=== PATIENT | female | born 1990 | race African-American/Black ===

== ENCOUNTER 2023-07-30 13:54 | Emergency (ER) | payer MEDICARE, OTHER ==
[~2023-07-30] VITALS: Ht 175.3 cm; Wt 103.0 kg
[2023-07-30] MEDS ORDERED: IBUP-1955 PO (15:20)
[2023-07-30 15:33] VITALS: BP 141/66; TEMP 98.2; O2SAT 100
== END 2023-07-30 15:33 | disposition home or self-care (01) ==
LOC: ER 14:00
DX: S46.912A Strain of unspecified muscle, fascia and tendon at shoulder and upper arm level, left arm, initial encounter (principal); V03.90XA Pedestrian on foot injured in collision with car, pick-up truck or van, unspecified whether traffic or nontraffic accident, initial encounter; Y93.89 Activity, other specified; Y92.89 Other specified places as the place of occurrence of the external cause; Y99.8 Other external cause status
CPT/HCPCS: 99284; 73030; 73110; J7040

== ENCOUNTER 2024-01-08 11:11 | Emergency (ER) | payer MEDICARE, OTHER ==
[~2024-01-08] VITALS: Ht 175.3 cm; Wt 106.1 kg
[~2024-01-08 11:11] MED LIST: IBUP-1955 PO
[2024-01-08] MEDS ORDERED: NITR100C6 PO (11:52)
[2024-01-08] MEDS ORDERED: FLUC150T PO (11:52)
[2024-01-08] MEDS ORDERED: NITROFURANTOIN/MONOHYDRATE MACROCRYSTALS 100 MG CAPSULE ONE (11:54)
[2024-01-08] MEDS: NITROFURANTOIN/MONOHYDRATE MACROCRYSTALS 100 MG CAPSULE PO ONE (11:55)
[2024-01-08 12:43] VITALS: BP 124/77; TEMP 98.3; O2SAT 98
== END 2024-01-08 12:45 | disposition home or self-care (01) ==
LOC: ER 11:11
DX: N39.0 Urinary tract infection, site not specified (principal)

== ENCOUNTER 2024-01-27 03:06 | Emergency (ER) | payer MEDICARE, OTHER ==
[~2024-01-27] VITALS: Ht 177.8 cm; Wt 90.7 kg
[~2024-01-27 03:06] MED LIST changes: +FLUC150T PO; +NITR100C6 PO
[2024-01-27 04:06] VITALS: TEMP 98.5
[2024-01-27 05:28] LABS: BASOPHILS % (AUTO) 0.6 % (0.0-2.0); EOSINOPHILS % (AUTO) 0.3 % (0.0-6.0); HEMATOCRIT 33 % (33-45); HEMOGLOBIN 10.7 g/dL (11.5-14.8); LYMPHOCYTES # (AUTO) 2.3 K/uL (0.8-4.8); LYMPHOCYTES % (AUTO) 29.4 % (20.0-44.0); MEAN CORPUSCULAR HEMOGLOBIN 27 PG (26.0-33.0); MEAN CORPUSCULAR HGB CONC 33 g/dl (31.0-36.0); MEAN CORPUSCULAR VOLUME 83 fL (82-100); MONOCYTES # (AUTO) 1.1 K/uL (0.1-1.30); MONOCYTES % (AUTO) 14.6 % (2.0-12.0); NEUTROPHILS # (AUTO) 4.3 K/uL (1.8-8.9); NEUTROPHILS % (AUTO) 55.1 % (43.0-81.0); PLATELET COUNT (AUTO) 362 K/uL (150-450); RED BLOOD CELL COUNT(AUTO) 3.98 MIL/uL (4.0-5.2); RED CELL DISTRIBUTION WIDTH 17.5 % (11.5-15.0); WHITE BLOOD COUNT (AUTO) 7.8 K/uL (4.3-11.0)
[2024-01-27 05:50] LABS: CALCIUM, SERUM 8.8 mg/dL (8.5-10.1); CREATININE 0.9 mg/dL (0.6-1.3); POTASSIUM 3.6 mmol/L (3.5-5.1)
[2024-01-27] MEDS ORDERED: CLIN150C16 PO (05:52)
[2024-01-27] MEDS ORDERED: CLINDAMYCIN HCL 150 MG CAPSULE ONE (05:58)
[2024-01-27] MEDS: CLINDAMYCIN HCL 150 MG CAPSULE PO ONE (06:01)
[2024-01-27 06:04] LABS: ALBUMIN 3.2 g/dL (3.4-5.0); BILIRUBIN,TOTAL 0.3 mg/dL (0.2-1.0); TOTAL PROTEIN, SERUM 7.7 g/dL (6.4-8.2)
[2024-01-27 06:56] VITALS: BP 124/81; O2SAT 96
== END 2024-01-27 06:56 | disposition home or self-care (01) ==
LOC: ER 03:20
DX: N61.0 Mastitis without abscess (principal)
CPT/HCPCS: 36415; 76642-LT-TC; 80053-TC; 85025-TC

== ENCOUNTER 2024-02-26 10:33 | Emergency (ER) | payer MEDICARE, OTHER ==
[~2024-02-26] VITALS: Ht 175.3 cm; Wt 105.2 kg
[~2024-02-26 10:33] MED LIST changes: +CLIN150C16 PO
[2024-02-26 10:50] VITALS: BP 141/74; TEMP 98.4; O2SAT 100
== END 2024-02-26 11:57 | disposition home or self-care (01) ==
LOC: ER 10:35
DX: M79.661 Pain in right lower leg (principal)
CPT/HCPCS: 93971-TC

== ENCOUNTER 2024-09-05 09:09 | Emergency (ER) | payer MEDICARE, OTHER ==
[~2024-09-05] VITALS: Ht 175.3 cm; Wt 113.9 kg
[2024-09-05 09:52] LABS: APPEARANCE,URINE SLIGHTLY CLOUDY (CLEAR); BILIRUBIN,URINE NEGATIVE (NEGATIVE); BLOOD, URINE 3+ Ery/uL (NEGATIVE); COLOR,URINE YELLOW (YELLOW); KETONES,URINE NEGATIVE (NEGATIVE); LEUKOCYTE ESTERASE ,URINE 1+ (NEGATIVE); NITRITE, URINE NEGATIVE (NEGATIVE); PH,URINE 7.5 (5.0-8.0); PROTEIN,URINE 1+ mg/dl (NEGATIVE); UGLUCOSE NEGATIVE (NEGATIVE)
[2024-09-05 09:53] LABS: PREGNANCY TEST URINE QUAL NEGATIVE (NEGATIVE)
[2024-09-05 09:57] LABS: ADD URINE CULTURE YES; BACTERIA,URINE Few /HPF (None Seen); RBC,URINE 51-80 /HPF (0-2); SQUAMOUS EPITHELIAL CELL,UR Few /HPF (None Seen); WBC,URINE 51-80 /HPF (0-3)
[2024-09-05] MEDS ORDERED: NITR-84 PO ×2 (10:00→17:34)
[2024-09-05 11:01] VITALS: BP 137/79; TEMP 97.8; O2SAT 99
== END 2024-09-05 10:15 | disposition home or self-care (01) ==
LOC: ER 09:12
DX: N39.0 Urinary tract infection, site not specified (principal)
CPT/HCPCS: 81001; 84703-TC; 87086-TC